=== PATIENT | male | born 1960 | race African-American/Black ===

== ENCOUNTER 2017-07-20 16:07 | Emergency (ER) | payer OTHER ==
[~2017-07-20] VITALS: Ht 195.6 cm; Wt 120.5 kg
[2017-07-20 16:08] VITALS: BP 140/77; PULSE 80; RESP 16; TEMP 98.6; O2SAT 98
[2017-07-20] MEDS ORDERED: NOVORP2 SQ (16:19)
[2017-07-20] MEDS ORDERED: METF1000 PO (16:19)
[2017-07-20] MEDS ORDERED: IBUPROFEN 800 MG TAB PO ONE (17:00)
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
[2017-07-20] MEDS ORDERED: CYCL5TAB PO (18:02)
== END 2017-07-20 18:11 | disposition home or self-care (01) ==
LOC: NEPD 16:07
DX: S13.4XXA Sprain of ligaments of cervical spine, initial encounter (principal); E11.9 Type 2 diabetes mellitus without complications; Z79.4 Long term (current) use of insulin; Z79.899 Other long term (current) drug therapy; V43.91XA Unspecified car occupant injured in collision with sport utility vehicle in traffic accident, initial encounter
CPT/HCPCS: 72050; 99283